=== PATIENT | female | born 1975 | race African-American/Black ===

== ENCOUNTER 2017-04-22 11:53 | Inpatient (IN) | payer OTHER ==
[~2017-04-22] VITALS: Ht 160 cm; Wt 104.3 kg
[2017-04-22 12:23] LABS: BASOPHILS % 0.7 % (0.0-2.0); EOSINOPHILS % 1.2 % (0.0-5.0); HEMATOCRIT. 35.7 % (36.0-48.0); HEMOGLOBIN. 11.7 g/dL (12.0-16.0); LYMPHOCYTES % 45.9 % (20.0-50.0); MEAN CORPUSCULAR HEMOGLOBIN 27.3 pg (28.0-32.0); MEAN CORPUSCULAR VOLUME 83.4 fL (81.0-99.0); MONOCYTES % 8.2 % (2.0-8.0); PLATELET 305 x1000/uL (130-400); RED BLOOD CELL COUNT 4.27 mill/uL (4.2-5.4); RED CELL DISTRIBUTION WIDTH 14.4 % (11.6-14.6)
[2017-04-22 12:35] LABS: PROTHROMBIN TIME 10.9 sec (9.4-11.6)
[2017-04-22 12:42] LABS: CARBON DIOXIDE 26 mEq/L (21-32); CHLORIDE 109 mEq/L (98-107); ETHANOL BLOOD < 10 mg/dL; TROPONIN I < 0.02 ng/mL (0.00-0.04)
[2017-04-22 13:20] LABS: CLARITY URINE CLEAR (CLEAR); COLOR URINE YELLOW (YELLOW); GLUCOSE URINE NEGATIVE (NEGATIVE); KETONES URINE NEGATIVE (NEGATIVE); LEUKOCYTE ESTERASE URINE NEGATIVE (NEGATIVE); NITRITE URINE NEGATIVE (NEGATIVE); OCCULT BLOOD URINE NEGATIVE (NEGATIVE); PROTEIN URINE NEGATIVE (NEGATIVE); SPECIFIC GRAVITY URINE 1.015 (1.005-1.030); UROBILINOGEN URINE 0.2 E.U./dL (0.2-1.0)
[2017-04-22 13:38] LABS: *AMPHETAMINES SCREEN URINE NEGATIVE (NEGATIVE); *BARBITURATES SCREEN URINE NEGATIVE (NEGATIVE); *BENZODIAZEPINES SCREEN URINE NEGATIVE (NEGATIVE); *COCAINE SCREEN URINE NEGATIVE (NEGATIVE); CANNABINOID URINE SCREEN NEGATIVE (NEGATIVE); METHADONE URINE SCREEN NEGATIVE (NEGATIVE); OPIATES URINE SCREEN NEGATIVE (NEGATIVE); PHENCYCLIDINE URINE SCREEN NEGATIVE (NEGATIVE)
[2017-04-22] MEDS ORDERED: ASPIRIN 325MG TABLET PO ONE (14:15)
[2017-04-22] MEDS ORDERED: ACETAMINOPHEN 325MG TABLET PO ONE (14:15)
[2017-04-22 15:45] LABS: GLUCOSE CSF 48 mg/dL (41-75)
[2017-04-22 16:23] VITALS: BP 110/67
[2017-04-22] MEDS ORDERED: HYDROMORPHONE HCL/PF 2MG/ML CPJ IV PRN (17:45)
[2017-04-22] MEDS ORDERED: HYDROCODONE/ACETAMINOPHEN 5/325MG TABLET PO PRN (17:45)
[2017-04-22] MEDS ORDERED: ONDANSETRON HCL 4MG/2ML VIAL IV PRN (17:45)
[2017-04-22] MEDS ORDERED: DOCUSATE SODIUM 100MG CAPSULE PO PRN (17:45)
[2017-04-22 20:00] VITALS: BP 107/70
[2017-04-22] MEDS: ACETAMINOPHEN 325MG TABLET PO PRN (22:50)
[2017-04-23] VITALS (7 sets, daily range): BP systolic 91–104; BP diastolic 53–62
[2017-04-23 07:08] LABS: BASOPHILS % 0.6 % (0.0-2.0); EOSINOPHILS % 1.1 % (0.0-5.0); HEMATOCRIT. 34.3 % (36.0-48.0); HEMOGLOBIN. 11.3 g/dL (12.0-16.0); LYMPHOCYTES % 35.6 % (20.0-50.0); MEAN CORPUSCULAR HEMOGLOBIN 27.5 pg (28.0-32.0); MEAN CORPUSCULAR VOLUME 83.6 fL (81.0-99.0); MEAN PLATELET VOLUME 8.1 fl (7.4-10.4); MONOCYTES % 7.1 % (2.0-8.0); NEUTROPHILS % 55.6 % (40.0-76.0); PLATELET 277 x1000/uL (130-400); RED BLOOD CELL COUNT 4.11 mill/uL (4.2-5.4); RED CELL DISTRIBUTION WIDTH 14.5 % (11.6-14.6)
[2017-04-23 07:57] LABS: CARBON DIOXIDE 22 mEq/L (21-32); CHLORIDE 107 mEq/L (98-107); HDL CHOLESTEROL 37 mg/dL (40-59); LDL CHOLESTEROL 62 mg/dL (5-100)
[2017-04-23] MEDS: ASPIRIN 81MG EC TABLET PO SCH (09:06)
[2017-04-23] MEDS: ACETAMINOPHEN 325MG TABLET PO PRN ×3 (09:06→20:51)
[2017-04-23] MEDS ORDERED: IOHEXOL-350 100 ML BOTTLE ONE (14:36)
[2017-04-23] MEDS ORDERED: SODIUM CHLORIDE 0.9% 10ML VIAL ONE (14:36)
[2017-04-24] VITALS: BP 97/54
[2017-04-24 04:00] VITALS: BP 109/61
[2017-04-24] MEDS: ACETAMINOPHEN 325MG TABLET PO PRN ×3 (04:45→20:30)
[2017-04-24 08:00] VITALS: BP 92/58
[2017-04-24] MEDS: ASPIRIN 81MG EC TABLET PO SCH (09:09)
[2017-04-24 12:00] VITALS: BP 94/57
[2017-04-24 16:00] VITALS: BP 126/63
[2017-04-24 20:00] VITALS: BP 100/54
[2017-04-25] VITALS: BP 105/54
[2017-04-25] MEDS: ACETAMINOPHEN 325MG TABLET PO PRN ×2 (02:08→08:41)
[2017-04-25 04:00] VITALS: BP 110/58
[2017-04-25 08:00] VITALS: BP 111/74
[2017-04-25] MEDS: ASPIRIN 81MG EC TABLET PO SCH (08:41)
[2017-04-25 12:00] VITALS: BP 111/61
[2017-04-25 13:45] VITALS: BP 111/61
== END 2017-04-25 17:30 | disposition home or self-care (01) | DRG 92 ==
LOC: ER 12:14 → 6WST 14:13 → EDBEDREQ 14:15 → EDBEDREQSVC 14:15 → EDBEDREQTM 14:15 → ENRESERV 14:40
PROVIDERS: ADMIT Hospitalist; ATTEND Hospitalist
PROC: 009U3ZX Drainage of Spinal Canal, Percutaneous Approach, Diagnostic (ICD-10-PCS; principal; 2017-04-22)
PROC: B01B1ZZ Fluoroscopy of Spinal Cord using Low Osmolar Contrast (ICD-10-PCS; 2017-04-22)
DX: R47.02 Dysphasia (principal); Z68.41 Body mass index [BMI] 40.0-44.9, adult; E66.01 Morbid (severe) obesity due to excess calories; Z88.0 Allergy status to penicillin; R51 Headache
CPT/HCPCS: 36415; 62270; 70450; 70496; 70498; 70551; 71010; 77003; 80053; 80061; 80305; 81003; 81025; 82945; 82962; 84157; 84484; 85025; 85610; 85651; 86256; 86713; 87070; 87205; 87255; 87804; 89050; 92523; 93005; 93306; 93970; 99285; A4216; G0482; J7040; Q9967